=== PATIENT | male | born 2000 | race Caucasian/White ===

== ENCOUNTER 2018-05-13 10:59 | Emergency (ER) | payer SELFPAY ==
[~2018-05-13] VITALS: Ht 170.2 cm; Wt 83.9 kg
--- NOTE | 2018-05-13 11:56 | Emergency Room Report ---
History of Present Illness General Chief Complaint: Lower Extremity Injury Source: Patient Present Illness HPI Patient is a 18-year-old male who presented after reported fall. Patient reports having fallen onto the left knee. He reports having increased pain and difficulty with movement. Injury occurred approximately 1 day prior to arrival. Patient reported having increased pain and swelling. Allergies: Coded Allergies: No Known Allergies (Unverified , 05/13/18) Patient History Reviewed Nursing Documentation: PMH: Agreed; PSxH: Agreed Nursing Documentation-PMH Past Medical History: No Stated History Review of Systems All Other Systems: negative except mentioned in HPI Physical Exam Vital Signs Date Time Temp Pulse Resp B/P (MAP) Pulse Ox O2 Delivery O2 Flow Rate FiO2 05/13/18 11:05 97.8 71 18 123/68 95 Room Air 97.9 General Appearance: well appearing, no apparent distress, alert, GCS 15 Head: normocephalic, atraumatic ENT: hearing grossly normal, normal voice Neck: full range of motion, supple Respiratory: no respiratory distress, speaking full sentences Musculoskeletal: no calf tenderness, other - ligamentous laxity on medial stress, soft tissue swelling, medial joint line tenderness. Neurologic: normal gait Psychiatric: mood/affect normal Skin: no rash Medical Decision Making Diagnostic Impression: Primary Impression: Left knee sprain ER Course Patient presented for knee pain. Differential diagnosis included was not limited to fracture, dislocation, popliteal aneurysm, arthritis, dislocation, ligamentous injury, septic joint among others. X-ray imaging of the left knee showed normal bony alignment without any fracture. The patient was given crutches. He was noted to have some ligamentous laxity on medial stress as well as some likely medial joint line tenderness. The patient was advised orthopedic follow-up. The patient declined knee immobilizer. The patient is advised to follow up with primary care doctor in 1-2 days for orthopedic referral. Patient is advised to return if any worsening condition or if any changes in status that are concerning. This report is dictated with [employer] machinist set up software which may occasionally lead to discrepancies related to use of this software. Last Vital Signs Date Time Temp Pulse Resp B/P (MAP) Pulse Ox O2 Delivery O2 Flow Rate FiO2 05/13/18 11:05 97.8 71 18 123/68 95 Room Air 97.9 Status: improved Scripts Hydrocodone Bit/Acetaminophen 5-325* (NORCO 5-325*) 1 Each Tablet 1 TAB ORAL Q6H PRN for For Pain, #20 TAB 0 Refills Prov: Chandrakant Holland MD 05/13/18 Ibuprofen* (MOTRIN*) 600 Mg Tablet 600 MG ORAL Q8H PRN for For Pain, #30 TAB 0 Refills Prov: Chandrakant Holland MD 05/13/18 Chandrakant Holland MD May 13, 2018 11:56
--- NOTE | 2018-05-13 12:34 | Diagnostic Imaging Report ---
Indication: Knee Pain 3 views of the left knee were obtained. Findings: No acute fracture, malalignment, or joint effusion are identified. Joint space is relatively well-maintained. Impression: Negative for acute injury
[2018-05-13] MEDS ORDERED: NORCO 5-325 TA1 EACH ORAL (12:56)
[2018-05-13] MEDS ORDERED: IBUPROFEN600 MG ORAL (12:56)
[2018-05-13] MEDS ORDERED: Ketorolac 60mg Inj IM ONE (13:00)
[2018-05-13 14:01] VITALS: BP 123/68
== END 2018-05-13 13:30 | disposition home or self-care (01) ==
LOC: EMR 12:10
DX: S83.92XA Sprain of unspecified site of left knee, initial encounter (principal); W19.XXXA Unspecified fall, initial encounter; Y92.9 Unspecified place or not applicable
CPT/HCPCS: 99284